=== PATIENT | male | born 1965 | race Two or more races ===

== ENCOUNTER 2021-10-16 07:58 | Emergency (ER) | payer BC ==
[2021-10-16 08:08] VITALS: BP 105/68; PULSE 83; TEMP 97; BMI 28.7
[2021-10-16] MEDS ORDERED: KETOROLAC TROMETHAMINE 30 MG/1 ML VIAL IM ONE (09:38)
[2021-10-16] MEDS ORDERED: KETOROLAC TROMETHAMINE 30 MG/1 ML VIAL ONE (10:03)
== END 2021-10-16 10:32 | disposition home or self-care (01) ==
LOC: JERFT 07:58 → JER 07:58 → JERFT 10:32
PROC: 3E023GC Introduction of Other Therapeutic Substance into Muscle, Percutaneous Approach (ICD-10-PCS; principal; 2021-10-16)
DX: M25.561 Pain in right knee (principal)
CPT/HCPCS: 73562-TC-RT-FY; 99284-25